=== PATIENT | male | born 1985 | race Caucasian/White ===

== ENCOUNTER 2016-11-28 06:25 | Emergency (ER) | payer SELFPAY ==
[~2016-11-28] VITALS: Ht 160 cm; Wt 83.5 kg
--- NOTE | 2016-11-28 06:25 | NUR ---
PT ROSS JACKSONS. TAKEN TO BED 4
[2016-11-28 06:30] VITALS: BP 161/108
--- NOTE | 2016-11-28 06:32 | NUR ---
Dr. Juárez evaluating patient at bedside.
[2016-11-28] MEDS ORDERED: NACL 0.9% 500 ML IV ONE (06:34)
[2016-11-28] MEDS ORDERED: ONDANSETRON 4 MG/2 ML VIAL IVP ONE (06:35)
[2016-11-28] MEDS ORDERED: LORazepam 2 MG/ML VIAL IVP ONE (06:35)
[2016-11-28] MEDS ORDERED: KETOROLAC 30 MG/ML VIAL IVP ONE (06:35)
--- NOTE | 2016-11-28 06:35 | NUR ---
BIBA C/O BACK PAIN, WHILE DRIVING FOR WORK AND HE WHEN HE PICKS PAPERS, HES HYPERVENTILATING PT DENIES N/V/D; SKIN IS PINK/WARM/DRY; AAOX4 WITH EVEN AND STEADY GAIT; LUNGS CLEAR BL; HR EVEN AND REGULAR; PT DENIES ANY FEVER, CP OR COUGH AT THIS TIME; PATIENT STATES PAIN OF 8/10 AT THIS TIME; VSS; PATIENT POSITIONED FOR COMFORT; HOB ELEVATED; BEDRAILS UP X2; BED DOWN. ER MD MADE AWARE OF PT STATUS.
--- NOTE | 2016-11-28 06:46 | NUR ---
PT TAKEN TO CT
[2016-11-28 06:49] LABS: BASOPHILS # (AUTO) 0.1 K/uL (0.00-0.22); BASOPHILS % (AUTO) 2.1 % (0.0-2.0); EOSINOPHILS # (AUTO) 0.2 K/uL (0-0.4); EOSINOPHILS % (AUTO) 2.7 % (0.0-4.0); HEMATOCRIT 46.5 % (36-52); HEMOGLOBIN 15.4 g/dL (12.0-18.0); LYMPHOCYTES # (AUTO) 2.2 K/uL (2.0-11.5); LYMPHOCYTES % (AUTO) 34.4 % (20.5-51.1); MEAN CORPUSCULAR HEMOGLOBIN 28 pg (27-31); MEAN CORPUSCULAR HGB CONC 33 g/dL (33-37); MEAN CORPUSCULAR VOLUME 83 fL (80-94); MONOCYTES # (AUTO) 0.4 K/uL (0.8-1.0); MONOCYTES % (AUTO) 6.9 % (1.7-9.3); NEUTROPHILS # (AUTO) 3.4 K/uL (1.8-7.7); NEUTROPHILS % (AUTO) 53.9 % (42.2-75.2); PLATELET COUNT (AUTO) 310 K/uL (140-450); RED BLOOD CELL COUNT(AUTO) 5.59 MIL/uL (4.20-6.10); RED CELL DISTRIBUTION WIDTH 12.3 % (11.6-13.7); WHITE BLOOD COUNT (AUTO) 6.3 K/uL (4.8-10.8)
[2016-11-28 06:50] LABS: BILIRUBIN,URINE NEGATIVE (NEGATIVE); BLOOD, URINE 3+ (NEGATIVE); COLOR,URINE YELLOW (YELLOW); LEUKOCYTE ESTERASE ,URINE NEGATIVE (NEGATIVE); NITRITE, URINE NEGATIVE (NEGATIVE); PH,URINE 7.5 (5.0-9.0); PROTEIN,URINE NEGATIVE (NEGATIVE); UGLUCOSE NEGATIVE (NEGATIVE); UROBILINOGEN,URINE 0.2 EU/dL (0.2 - 1)
[2016-11-28 07:04] LABS: ALBUMIN 4.6 g/dL (3.4-5.0); ANION GAP 17.4 (8-16); CALCIUM 9.4 mg/dL (8.5-10.1); CARBON DIOXIDE 23.7 mmol/L (21-32); POTASSIUM 3.1 mmol/L (3.5-5.1); TOTAL BILIRUBIN 0.7 mg/dL (0.0-1.0); TOTAL PROTEIN, SERUM 8.7 g/dL (6.4-8.2)
--- NOTE | 2016-11-28 07:06 | NUR ---
PT RETURN FROM CT
[2016-11-28 07:07] LABS: APPEARANCE,URINE HAZY (CLEAR); BACTERIA,URINE None Seen /HPF (None Seen); RBC,URINE 20-50 /HPF (0-5); SQUAMOUS EPITHELIAL CELL,UR None Seen /LPF (0-3 (FEW)); WBC,URINE 0-5 (RARE) /HPF (0-5)
[2016-11-28 07:08] LABS: MUCUS,URINE 1+ /LPF (None Seen)
[2016-11-28 07:13] LABS: INR 1.1 (0.8-1.2); PARTIAL THROMBOPLASTIN TIME 22.4 secs (22-35.6); PROTHROMBIN TIME 10.4 secs (10.8-13.4)
--- NOTE | 2016-11-28 07:13 | NUR ---
RECEIVED REPORT FROM WILMAN REED.Patient appears to be resting comfortably in bed. Vital Signs within normal limits. Respirations even and unlabored.PT STATED LOWER BACK PAIN 4/10.
[2016-11-28 08:05] VITALS: BP 139/90
--- NOTE | 2016-11-28 08:05 | NUR ---
Patient discharged with BP139/90; NO S/S OF HEADACHE OR DIZZINESS, MD AWARE. Written and verbal after care instructions given and explained. Patient alert, oriented and verbalized understanding of instructions. Ambulatory with steady gait. All questions addressed prior to discharge. ID band removed. Patient advised to follow up with PMD. Rx of ZOFRAN,NORCO & FLOMAX given. Patient educated on indication of medication including possible reaction and side effects. Opportunity to ask questions provided and answered.
== END 2016-11-28 08:05 | disposition home or self-care (01) ==
LOC: MED 06:25
DX: R10.32 Left lower quadrant pain (principal); R03.0 Elevated blood-pressure reading, without diagnosis of hypertension; M54.5 Low back pain
CPT/HCPCS: 36415; 74176; 80053; 81001; 85025; 85610; 85730; 96361; 96374; 96375; 99285; J1885; J2060; J2405; J7030